=== PATIENT | male | born 1975 | race Caucasian/White ===

== ENCOUNTER 2020-06-23 17:24 | Emergency (ER) | payer OTHER, MEDICARE ==
[2020-06-23 20:41] LABS: HEMOGLOBIN 12.7 gm/dl (14.0-17.5); RED BLOOD COUNT 4.97 M/UL (4.20-5.50)
[2020-06-23 20:59] LABS: BUN/CREATININE RATIO 20 (0-10)
[2020-06-23] MEDS ORDERED: IBUPROFEN600 MG PO (22:23)
[2020-06-23] MEDS ORDERED: CYCLOBENZAPRINE5 MG PO (22:23)
== END 2020-06-23 22:41 | disposition home or self-care (01) ==
LOC: ER1 17:24
PROVIDERS: Emergency Medicine
DX: M25.512 Pain in left shoulder (principal); M25.552 Pain in left hip; M25.562 Pain in left knee; M54.2 Cervicalgia; M54.6 Pain in thoracic spine; M54.5 Low back pain; I10 Essential (primary) hypertension; E11.9 Type 2 diabetes mellitus without complications; V43.32XA Unspecified car occupant injured in collision with other type car in nontraffic accident, initial encounter; Y92.410 Unspecified street and highway as the place of occurrence of the external cause
CPT/HCPCS: 70450; 71045; 72070; 72100; 72125; 73030; 73502; 73562; 80053; 83690; 85025; 96374; 99284; J1885